=== PATIENT | male | born 1985 | race Caucasian/White ===

== ENCOUNTER 2023-01-10 10:21 | Emergency (ER) | payer OTHER ==
[2023-01-10] MEDS ORDERED: Ketorolac Tromethamine 30 MG/ML VIAL ONE (12:43)
[2023-01-10] MEDS ORDERED: Methocarbamol 500 MG TAB PO SCH (13:00)
== END 2023-01-10 13:29 | disposition home or self-care (01) ==
LOC: CSHERS 10:21
DX: M54.50 Low back pain, unspecified (principal); M79.652 Pain in left thigh; M54.2 Cervicalgia
CPT/HCPCS: 72100; 96372; J1885